=== PATIENT | female | born 1990 | race Caucasian/White ===

== ENCOUNTER 2016-07-19 18:21 | Emergency (ER) | payer MEDICAID ==
[2016-07-19 18:44] VITALS: BP 124/82
[2016-07-19 19:46] LABS: Basophils % (Auto) 0.6 % (0.0-1.8); Eosinophils % (Auto) 4.5 % (0.0-4.3); Hemoglobin 13.4 gm/dl (10.1-14.3); Mean Corpuscular HGB Conc 34 % (30-34); Mean Corpuscular Hemoglobin 30 pg (28-32); Mean Corpuscular Volume 89 fl (79-97); Platelet Count 259 K/mm3 (140-440); Red Cell Distribution Width 13.2 % (13.2-15.2)
[2016-07-19 19:57] LABS: Creatine Kinase MB 1.3 ng/mL (0.0-4.0)
[2016-07-19 19:59] LABS: Anion Gap 16 mmol/L; Blood Urea Nitrogen 12 mg/dL (7-17); Carbon Dioxide 26 mmol/L (22-30); Chloride 102.6 mmol/L (98-107); Creatine Kinase 63 units/L (30-135); Glucose 93 mg/dL (65-100); Potassium 3.9 mmol/L (3.6-5.0); Sodium 141 mmol/L (137-145)
[2016-07-19 20:30] LABS: Bilirubin,Urine NEG (Negative); Blood,Urine SM (Negative); Ketones,Urine NEG (Negative); Leukocyte Esterase,Urine SM (Negative); Mucus,Urine FEW /HPF; Nitrite,Urine NEG (Negative); Protein,Urine <15 mg/dL mg/dL (Negative); Urobilinogen,Urine < 2.0 mg/dL (<2.0)
== END 2016-07-19 19:30 | disposition left against medical advice (07) ==
LOC: ED 18:21
DX: R07.9 Chest pain, unspecified (principal); Z53.21 Procedure and treatment not carried out due to patient leaving prior to being seen by health care provider
CPT/HCPCS: 36415; 80048; 81001; 81025; 82550; 82553; 84484; 85025; 93005; 93010

== ENCOUNTER 2017-03-30 22:40 | Emergency (ER) | payer MEDICAID ==
[2017-03-31] MEDS ORDERED: TYLENOL PO ONE (00:42)
[2017-03-31] MEDS ORDERED: TYLENOL ONE (00:45)
[2017-03-31 01:14] LABS: Basophils % (Auto) 0.7 % (0.0-1.8); Eosinophils % (Auto) 4.8 % (0.0-4.3); Hematocrit 40.8 % (30.3-42.9); Hemoglobin 14.1 gm/dl (10.1-14.3); Mean Corpuscular HGB Conc 35 % (30-34); Mean Corpuscular Hemoglobin 31 pg (28-32); Mean Corpuscular Volume 90 fl (79-97); Platelet Count 287 K/mm3 (140-440); Red Blood Count 4.55 M/mm3 (3.65-5.03); White Blood Count 10.5 K/mm3 (4.5-11.0)
[2017-03-31 01:33] LABS: BUN/Creatinine Ratio 30; Blood Urea Nitrogen 12 mg/dL (7-17); Calcium 9.3 mg/dL (8.4-10.2); Carbon Dioxide 24 mmol/L (22-30); Glucose 88 mg/dL (65-100)
[2017-03-31 01:34] LABS: Alanine Aminotransferase 18 units/L (7-56); Albumin 4.4 g/dL (3.9-5); Albumin/Globulin Ratio 1.4 %; Alkaline Phosphatase 100 units/L (35-129); Anion Gap 15 mmol/L; Chloride 98.6 mmol/L (98-107); Lipase 28 units/L (13-60); Potassium 3.8 mmol/L (3.6-5.0); Sodium 134 mmol/L (137-145); Total Protein 7.6 g/dL (6.3-8.2)
[2017-03-31 03:36] LABS: Bilirubin,Urine NEG (Negative); Blood,Urine SM (Negative); Ketones,Urine NEG (Negative); Leukocyte Esterase,Urine NEG (Negative); Mucus,Urine FEW /HPF; Nitrite,Urine NEG (Negative); Protein,Urine <15 mg/dL mg/dL (Negative); Urobilinogen,Urine < 2.0 mg/dL (<2.0)
--- NOTE | 2017-03-31 11:31 | Ultrasound Report ---
FINAL REPORT PROCEDURE: US OB TRANSVAGINAL TECHNIQUE: Real-time transvaginal sonography of the pelvis was performed. HISTORY: low hcg, estimates 4 weeks preg, abd pain COMPARISON: None FINDINGS: Small free fluid is present within the pelvis. The endometrial stripe is heterogeneous in echogenicity 1.35 centimeters thick. No intrauterine gestation is identified. The right ovary measures 2.6 x 1.6 x 1.2 centimeters and the left ovary measures 2.8 x 2.0 x 1.9 centimeters. Normal ovarian blood flow is seen. IMPRESSION: 1.35 centimeter thick heterogeneous endometrial stripe. No intrauterine gestation identified. Missed is of concern. Clinical followup to include serial beta HCGs is recommended as well as follow-up ultrasound to evaluate for early as yet not seen intrauterine gestation as well as to ensure endometrial thinning so as to exclude retained products of conception.
--- NOTE | 2017-03-31 11:33 | Ultrasound Report ---
FINAL REPORT PROCEDURE: US OB < = 14 WEEKS FETUS TECHNIQUE: Transabdominal ultrasound of the pelvis was performed. HISTORY: low hcg, estimates 4 weeks preg, abd pain COMPARISON: None FINDINGS: The uterus measures 13.3 x 4.5 x 4.9 centimeters. The endometrial stripe was better seen transvaginally as were the ovaries. There is no significant free fluid. IMPRESSION: No evident acute pelvic pathology. Please see more sensitive transvaginal technique also performed.
--- NOTE | 2017-03-31 11:40 | Emergency Department Report ---
ED Female HPI - General Chief complaint: Abdominal Pain Stated complaint: ABDOMINAL PAIN Time Seen by Provider: 03/31/17 09:48 Source: patient Mode of arrival: Ambulatory Limitations: No Limitations - History of Present Illness Initial comments: 26-year-old female currently 4 weeks and 3 days by dates presents to the hospital complaining of suprapubic and lower abdominal pain started last night. Patient states she had significant suprapubic cramping with intermittent sharp pain and aching pain to her lower back. Positive nausea for the past 2-3 days. No vomiting reported. Patient states she is having infrequent bowel movements and only had a little bit of stool output today. She has bloating and discomfort with eating. She denies vaginal discharge, vaginal bleeding, fever, or dysuria. Patient has initiated care with [facility] but has not had an ultrasound during this . This is her fourth and she has 3 children without history of miscarriage, ectopic , or . LMP 02/28/2017 - Related Data Previous Rx's Medication Instructions Recorded Last Taken Type Docusate Sodium [Colace] 100 mg PO BID PRN #20 capsule 03/31/17 Unknown Rx Polyethylene Glycol 3350 [Miralax 17 gm PO QDAY PRN #10 packet 03/31/17 Unknown Rx 3350] Allergies Allergy/AdvReac Type Severity Reaction Status Date / Time No Known Allergies Allergy Verified 06/02/13 07:53 ED Review of Systems ROS: Stated complaint: ABDOMINAL PAIN Other details as noted in HPI Comment: All other systems reviewed and negative Other: Constitutional: No fevers chills Eyes: No eye pain visual changes ENT: No ear pain or throat pain Neck: Denies pain Respiratory: Denies cough wheezing shortness of breath Cardiovascular: Denies chest pain, palpitations, syncope GI: As per HPI : Denies dysuria Musculoskeletal: as per [place] Skin: Denies rash, lesions, erythema Neurologic: Denies headache, numbness, weakness Psychiatric: Denies suicidal ideation, hallucinations ED Past Medical Hx - Past Medical History Hx Hypertension: No Hx Congestive Heart Failure: No Hx Diabetes: No Hx Deep Vein Thrombosis: No Hx Renal Disease: No Hx Sickle Cell Disease: No Hx Seizures: No Hx Asthma: No Hx COPD: No Hx HIV: No - Surgical History Past Surgical History?: No - Social History Smoking Status: Never Smoker Substance Use Type: None - Medications Home Medications: Home Medications Medication Instructions Recorded Confirmed Last Taken Type Docusate Sodium [Colace] 100 mg PO BID PRN #20 capsule 03/31/17 Unknown Rx Polyethylene Glycol 3350 [Miralax 17 gm PO QDAY PRN #10 packet 03/31/17 Unknown Rx 3350] ED Physical Exam - General Limitations: No Limitations - Other Other exam information: General: No limitations, patient is alert in no acute distress Head exam: Atraumatic, normocephalic Eyes exam: Normal appearance, pupils equal reactive to light, extraocular movements intact ENT: Moist mucous membrane, normal oropharynx Neck exam: Normal inspection, full range of motion, no meningismus nontender Respiratory exam: Clear to auscultation bilateral, no wheezes, rales, crackles Cardiovascular: Normal rate and rhythm Abdomen: Soft, nondistended, and nontender, with normal bowel sounds, no rebound, or guarding Extremity: Full range of motion normal inspection no deformity Back: Normal Inspection, full range of motion, mild right lower paraspinal muscle tenderness to palpation Neurologic: Alert, oriented x3, cranial nerves intact, no motor or sensory deficit Psychiatric: normal affect, normal mood Skin: Warm, dry, intact ED Course Vital Signs 03/30/17 03/31/17 03/31/17 23:10 00:45 08:34 Temperature 98.2 F 98.2 F Pulse Rate 71 Respiratory 19 18 18 Rate Blood Pressure 108/71 Blood Pressure 106/67 [Right] O2 Sat by Pulse 100 Oximetry 03/31/17 09:44 Temperature Pulse Rate Respiratory 14 Rate Blood Pressure Blood Pressure [Right] O2 Sat by Pulse 99 Oximetry - Reevaluation(s) Reevaluation #1: 03/31/17 11:44 Patient received Tylenol prior to my evaluation was seemed to help pain. - Consultations Consultation #1: 03/31/17 12:[address] Dee Joel MUSIC PRODUCER at this time. Recommend follow-up in the clinic in 3 to ED Medical Decision Making - Lab Data Result diagrams: 03/31/17 00:59 03/31/17 00:59 Lab Results 03/31/17 03/31/17 03/31/17 Range/Units 00:59 00:59 00:59 WBC 10.5 (4.5-11.0) K/mm3 RBC 4.55 (3.65-5.03) M/mm3 Hgb 14.1 (10.1-14.3) gm/dl Hct 40.8 (30.3-42.9) % MCV 90 (79-97) fl MCH 31 (28-32) pg MCHC 35 H (30-34) % RDW 13.0 L (13.2-15.2) % Plt Count 287 (140-440) K/mm3 Lymph % (Auto) 37.7 H (13.4-35.0) % [place] % (Auto) 6.1 (0.0-7.3) % Eos % (Auto) 4.8 H (0.0-4.3) % Baso % (Auto) 0.7 (0.0-1.8) % Lymph # 3.9 (1.2-5.4) K/mm3 [place] # 0.6 (0.0-0.8) K/mm3 Eos # 0.5 H (0.0-0.4) K/mm3 Baso # 0.1 (0.0-0.1) K/mm3 Seg Neutrophils % 50.7 (40.0-70.0) % Seg Neutrophils # 5.3 (1.8-7.7) K/mm3 Sodium 134 L (137-145) mmol/L Potassium 3.8 (3.6-5.0) mmol/L Chloride 98.6 (98-107) mmol/L Carbon Dioxide 24 (22-30) mmol/L Anion Gap 15 mmol/L BUN 12 (7-17) mg/dL Creatinine 0.4 L (0.7-1.2) mg/dL Estimated GFR > 60 ml/min BUN/Creatinine Ratio 30 % Glucose 88 (65-100) mg/dL Calcium 9.3 (8.4-10.2) mg/dL Total Bilirubin 0.30 (0.1-1.2) mg/dL AST 12 (5-40) units/L ALT 18 (7-56) units/L Alkaline Phosphatase 100 (35-129) units/L Total Protein 7.6 (6.3-8.2) g/dL Albumin 4.4 (3.9-5) g/dL Albumin/Globulin Ratio 1.4 % Lipase 28 (13-60) units/L HCG, Quant 173.3 H (0-4) mIU/mL Urine Color (Yellow) Urine Turbidity (Clear) Urine pH (5.0-7.0) Ur Specific [place] (1.003-1.030) Urine Protein (Negative) mg/dL Urine Glucose (UA) (Negative) mg/dL Urine Ketones (Negative) mg/dL Urine Blood (Negative) Urine Nitrite (Negative) Urine Bilirubin (Negative) Urine Urobilinogen (<2.0) mg/dL Ur Leukocyte Esterase (Negative) Urine WBC (Auto) (0.0-6.0) /HPF Urine RBC (Auto) (0.0-6.0) /HPF U Epithel Cells (Auto) (0-13.0) /HPF Urine Mucus /HPF 03/31/17 Range/Units 02:43 WBC (4.5-11.0) K/mm3 RBC (3.65-5.03) M/mm3 Hgb (10.1-14.3) gm/dl Hct (30.3-42.9) % MCV (79-97) fl MCH (28-32) pg MCHC (30-34) % RDW (13.2-15.2) % Plt Count (140-440) K/mm3 Lymph % (Auto) (13.4-35.0) % [place] % (Auto) (0.0-7.3) % Eos % (Auto) (0.0-4.3) % Baso % (Auto) (0.0-1.8) % Lymph # (1.2-5.4) K/mm3 [place] # (0.0-0.8) K/mm3 Eos # (0.0-0.4) K/mm3 Baso # (0.0-0.1) K/mm3 Seg Neutrophils % (40.0-70.0) % Seg Neutrophils # (1.8-7.7) K/mm3 Sodium (137-145) mmol/L Potassium (3.6-5.0) mmol/L Chloride (98-107) mmol/L Carbon Dioxide (22-30) mmol/L Anion Gap mmol/L BUN (7-17) mg/dL Creatinine (0.7-1.2) mg/dL Estimated GFR ml/min BUN/Creatinine Ratio % Glucose (65-100) mg/dL Calcium (8.4-10.2) mg/dL Total Bilirubin (0.1-1.2) mg/dL AST (5-40) units/L ALT (7-56) units/L Alkaline Phosphatase (35-129) units/L Total Protein (6.3-8.2) g/dL Albumin (3.9-5) g/dL Albumin/Globulin Ratio % Lipase (13-60) units/L HCG, Quant (0-4) mIU/mL Urine Color Yellow (Yellow) Urine Turbidity Clear (Clear) Urine pH 5.0 (5.0-7.0) Ur Specific [place] 1.025 (1.003-1.030) Urine Protein <15 mg/dl (Negative) mg/dL Urine Glucose (UA) Neg (Negative) mg/dL Urine Ketones Neg (Negative) mg/dL Urine Blood Sm (Negative) Urine Nitrite Neg (Negative) Urine Bilirubin Neg (Negative) Urine Urobilinogen < 2.0 (<2.0) mg/dL Ur Leukocyte Esterase Neg (Negative) Urine WBC (Auto) 1.0 (0.0-6.0) /HPF Urine RBC (Auto) 1.0 (0.0-6.0) /HPF U Epithel Cells (Auto) 2.0 (0-13.0) /HPF Urine Mucus Few /HPF - Radiology Data Radiology results: report reviewed read by radiologist: Transvaginal/OB ultrasound: 1.35 cm Thick heterogeneous endometrial stripe. No intrauterine gestation identified. Missed is of concern. Follow up recommended. - Medical Decision Making Plan to discharge the patient with ectopic precautions as IUP is not visualized. Follow-up in 3 days recommended by MUSIC PRODUCER. Will be treated for constipation as well - Differential Diagnosis constipation, ectopic, miscarriage, UTI and Critical Care Time: No Critical care attestation.: If time is entered above; I have spent that time in minutes in the direct care of this critically ill patient, excluding procedure time. ED Disposition Clinical Impression: Constipation, Early stage of Disposition: DC-01 TO HOME OR SELFCARE Is pt being admited?: No Does the pt Need Aspirin: No Condition: Stable Instructions: Ectopic (ED), (ED), Constipation (ED) Additional Instructions: At this time your baby hormone level (beta HCG) Is only 173. The ultrasound does not reveal any . Typically we do not see a on ultrasound until your baby hormone is at least 1500. We expect your level to be a lot higher if you are indeed 4 weeks . It is possible that you you are having a miscarriage or an early . Until we can see a in the right place we cannot rule out an ectopic and therefore you were given ectopic precautions as well. Your case was discussed with your regional branch manager group. You need to follow up in the office in 3 days for repeat blood draw. Please return if symptoms worsen as indicated by urine discharge instructions. Take the prescribed medication as needed for constipation and increase your fluid intake Prescriptions: Docusate Sodium [Colace] 100 mg PO BID PRN #20 capsule PRN Reason: Constipation Polyethylene Glycol 3350 [Miralax 3350] 17 gm PO QDAY PRN #10 packet PRN Reason: Constipation Referrals: your, regional branch manager [Other] - 04/03/17 Time of Disposition: 12:37
[2017-03-31 12:45] VITALS: BP 125/75
== END 2017-03-31 12:45 | disposition home or self-care (01) ==
LOC: ED 22:40
DX: O26.891 Other specified pregnancy related conditions, first trimester (principal); K59.00 Constipation, unspecified; R10.30 Lower abdominal pain, unspecified; R11.0 Nausea; Z3A.01 Less than 8 weeks gestation of pregnancy
CPT/HCPCS: 36415; 76801; 76817; 80053; 81001; 83690; 84702; 85025